=== PATIENT | male | born 1950 | race Caucasian/White ===

== ENCOUNTER → 2018-07-15 | Outpatient (CLI) | payer MEDICARE, OTHER ==
[~2018-07-15] MED LIST: ATOR20TA65 PO; CALC600T63 PO; CHOL200021 PO; CICL15CR TP; ESZ3PT PO; FLU60SYR30 IM ONLY; FLUT15.88; FLUT16SP20 NS; MAGN250T34 PO; MELO-150 PO; OMEG-11 PO; PNEI IJ; PNEU0.5D3 IM; SILD100T59 PO; SILD25TA6 PO; TERB250T63 PO; TRAZ50TA34 PO; ZOLP-358 PO
== END ==
LOC: RESP 03:58
PROVIDERS: ATTEND Internal Medicine
DX: G47.33 Obstructive sleep apnea (adult) (pediatric) (principal)

== ENCOUNTER → 2019-05-30 | Day surgery (SDC) | payer MEDICARE, OTHER ==
[~2019-05-30] VITALS: Ht 180.3 cm; Wt 65.3 kg
[2019-05-30] VITALS (8 sets, daily range): BP systolic 78–124; BP diastolic 49–89
[~2019-05-30] MED LIST changes: +LIDOCAINE MPF 1% 5 ML VIAL ONE; +LIDOCAINE/SOD BICARB 8.4% SYR ID ONE; +MELO-207 PO; +PROPOFOL EMUL(*) 10MG/ML 20 ML 40 ML ONE; +ROSU20TA24 PO; -TRAZ50TA34 PO; +TRAZ50TA52 PO
[2019-05-30] MEDS: NORMOSOL R SOLN(*) 1000 ML BAG 1,000 ML IV PRN ×2 (08:20→10:34)
--- NOTE | 2019-05-30 10:00 | Short(Outpt) Discharge Summary ---
Discharge Summary Reason for Hosp/Final Diag: (1) Bleeding per rectum Hospital Course & Plan: pt presented for colonoscopy. he tolerated the procedure well and will be discharged home when criteria met. Departure Discharge to: Home Discharge Instructions Home Meds Active Scripts Meloxicam (MELOXICAM) 15 Mg Tablet, 15 MG PO QDAY PRN for pain, #30 TAB 5 Refills Prov:PEMA STREET MD 11/12/18 Sildenafil Citrate (VIAGRA) 100 Mg Tablet, 1 TAB PO QDAY, #9 TAB 6 Refills Prov:PEMA STREET MD 11/12/18 Eszopiclone (LUNESTA) 3 Mg Tablet, 0.5-1 TAB PO QHS PRN for insomnia, #30 TAB 5 Refills Prov:EPMA STREET MD 11/12/18 Rosuvastatin Calcium (CRESTOR) 20 Mg Tablet, 0.5 TAB PO QDAY, #45 TAB 3 Refills Prov:PEMA STREET MD 11/12/18 Reported Medications Magnesium Oxide (MAGNESIUM) 250 Mg Tablet, 1 TAB PO QDAY 10/28/15 [place]-3 Fatty Acids/Fish Oil (FISH OIL 1,000 MG CAPSULE) 1 Each Capsule, 1 EACH PO QDAY, CAPSULE 12/22/13 Cholecalciferol (Vitamin D3) (VITAMIN D) 2,000 Unit Capsule, 2000 UNIT PO QDAY, CAPSULE 12/22/13 Discontinued Scripts Fluticasone Propionate (Fluticasone Propionate) 50 Mcg/Actuation [place].susp, 2 SPR NA QDAY PRN for rhinitis, #1 BOTTLE 6 Refills Prov:PEMA STREET MD 11/12/18 Diet: Regular Activity: As Tolerated Special Instructions: repeat colonoscopy in 10 yrs CHAMP MARSHALL May 30, 2019 10:00
--- NOTE | 2019-05-30 10:01 | NUR ---
[id number] SBAR REPORT WAS RECEIVED FROM DR. BILLY AND JUSTIN RN. PATIENT ARRIVED ON 6 LITERS OXYMASK THAT WAS MOVED TO 2 LITERS ON ARRIVAL. LUNGS ARE CLEAR. BOWEL SOUNDS ARE HYPERACTIVE. NO BLEEDING NOTED WITH HEMORRHOIDS. PATIENTS BP WAS 78/52 IV OPENED WIDE AND PATIENT WAS MOVED TO A [place] POSITION. HE IS IN A L. LATERAL POSITION. UNABLE TO ASSESS PAIN OR NAUSEA. PATIENT IS UNRESPONSIVE BUT IS MAINTAINING HIS AIRWAY. [id number] WAS PRESENT IN THE ROOM
--- NOTE | 2019-05-30 10:26 | NUR ---
1022 PATIENT WAS MOVED TO ROOM AIR. HE IS TOLERATING THIS WELL. HE WAS MOVED TO A [place] POSITION
== END ==
LOC: OR 00:24
PROVIDERS: ATTEND Surgery
DX: K64.8 Other hemorrhoids (principal)
CPT/HCPCS: 00811; 45398; J2001; J2704